=== PATIENT | female | born 2000 | race Caucasian/White ===

== ENCOUNTER 2024-05-23 17:48 | Emergency (ER) | payer BC ==
[~2024-05-23] VITALS: Ht 162.6 cm; Wt 45.5 kg
[2024-05-23] MEDS: KETOROLAC TROMETHAMINE INJ 30 MG/ML VIAL IM ONE (18:30)
[2024-05-23] MEDS ORDERED: ACETAMINOPHEN ES 500 MG TABLET ONE (18:32)
[2024-05-23] MEDS ORDERED: METHOCARBAMOL (500MG) 500 MG TABLET ONE (18:32)
[2024-05-23] MEDS: METHOCARBAMOL (750MG) 750 MG TABLET PO SCH (18:37)
[2024-05-23] MEDS: ACETAMINOPHEN ES 500 MG TABLET PO ONE (18:37)
[2024-05-23 18:56] LABS: PREGNANCY TEST URINE QUAL NEGATIVE (NEGATIVE)
[2024-05-23] MEDS ORDERED: KETOROLAC TROMETHAMINE INJ 30 MG/ML VIAL ONE (19:16)
[2024-05-23] MEDS ORDERED: METH-649 PO (19:24)
[2024-05-23] MEDS ORDERED: IBUP-1957 PO (19:24)
[2024-05-23] MEDS ORDERED: LIDO1ADH82 TP (19:24)
[2024-05-23] MEDS ORDERED: ACET-2030 PO (19:24)
[2024-05-23 19:36] VITALS: BP 110/82; TEMP 98.6; O2SAT 97
== END 2024-05-23 19:37 | disposition home or self-care (01) ==
LOC: ER 18:04
DX: M54.6 Pain in thoracic spine (principal); M54.2 Cervicalgia; F17.200 Nicotine dependence, unspecified, uncomplicated
CPT/HCPCS: 99283; 96372; 84703; J1885

== ENCOUNTER 2025-01-19 05:11 | Emergency (ER) | payer BC ==
[~2025-01-19] VITALS: Ht 162.6 cm; Wt 68.0 kg
[~2025-01-19 05:11] MED LIST: ACET-2030 PO; IBUP-1957 PO; LIDO1ADH82 TP; METH-649 PO
[2025-01-19 05:38] VITALS: BP 120/70; TEMP 99.1; O2SAT 96
[2025-01-19] MEDS ORDERED: CEPH-570 PO (05:49)
== END 2025-01-19 06:00 | disposition home or self-care (01) ==
LOC: ER 05:13
DX: N61.0 Mastitis without abscess (principal)